=== PATIENT | female | born 1975 | race Caucasian/White ===

== ENCOUNTER 2019-06-01 11:26 | Emergency (ER) | payer OTHER ==
[~2019-06-01] VITALS: Ht 165.1 cm; Wt 99.3 kg
[2019-06-01 11:35] VITALS: BP 129/80
--- NOTE | 2019-06-01 11:41 | NUR ---
PT TO ER BED 4 WITH STEADY GAIT
--- NOTE | 2019-06-01 11:51 | NUR ---
PATIENT PRESENTS TO ED WITH RECTAL PAIN X4 DAYS. PT STATES PAIN STARTED 3 YEARS AGO AFTER BEING CONSTIPATED, CONTINUED PAIN. DENIES N/V/D; SKIN IS PINK/WARM/DRY; AAOX4 WITH EVEN AND STEADY GAIT; LUNGS CLEAR BL; HR EVEN AND REGULAR; PT DENIES ANY FEVER, CP, SOB, OR COUGH AT THIS TIME; PATIENT STATES PAIN OF 6/10 AT THIS TIME; VSS; PATIENT POSITIONED FOR COMFORT; HOB ELEVATED; BEDRAILS UP X2; BED DOWN. ER MD MADE AWARE OF PT STATUS.
--- NOTE | 2019-06-01 12:10 | NUR ---
Female [employer] Operator, KINGS PULIDO, accompanied female patient for Rectal Exam WITH DR YU.
--- NOTE | 2019-06-01 12:27 | NUR ---
dr. damico dc pt and provide with dc instructions along with rx naprosyn / keflex
[2019-06-01 12:28] VITALS: BP 129/80
== END 2019-06-01 12:27 | disposition home or self-care (01) ==
LOC: MED 11:26
DX: K61.1 Rectal abscess (principal); K64.4 Residual hemorrhoidal skin tags
CPT/HCPCS: 99283

== ENCOUNTER 2019-12-16 09:38 | Emergency (ER) | payer MEDICAID, OTHER ==
[~2019-12-16] VITALS: Ht 165.1 cm; Wt 100.7 kg
[2019-12-16 09:45] VITALS: BP 150/97
--- NOTE | 2019-12-16 09:45 | NUR ---
44 YO F C/C OF LEFT LOWER QUADRANT ABDOMINAL PAIN THAT BEGAN THIS MORNING AROUND 7AM. 10/10 PAIN DESCRIBED THROBBING PRESSURE. WALKING, SITTING, LAYING AGGRAVATES PAIN. LAYING ON RIGHT SIDE RELIEVES PAIN. SIDE RAILS X1. ALLERGIES- PT STATES SHE HAS AN ALLERGY TO A PAIN MEDICATION BUT DOESNT REMEMBER WHICH ONE NO MED HX NO RX.
--- NOTE | 2019-12-16 09:45 | NUR ---
PT TAKEN TO ROOM 8 VIA WHEELCHAIR
--- NOTE | 2019-12-16 09:48 | NUR ---
PT AMBULATED TO RESTROOM
[2019-12-16] MEDS ORDERED: MORPHINE SULFATE 4 MG/ML SYR IVP ONE ×2 (10:25→12:10)
[2019-12-16] MEDS ORDERED: ONDANSETRON 4 MG/2 ML VIAL IVP ONE (10:25)
[2019-12-16 10:53] LABS: APPEARANCE,URINE CLEAR (CLEAR); BILIRUBIN,URINE NEGATIVE (NEGATIVE); BLOOD, URINE TRACE-I (NEGATIVE); COLOR,URINE YELLOW (YELLOW); LEUKOCYTE ESTERASE ,URINE NEGATIVE (NEGATIVE); NITRITE, URINE NEGATIVE (NEGATIVE); UGLUCOSE NEGATIVE (NEGATIVE)
[2019-12-16 10:54] LABS: BASOPHILS # (AUTO) 0.1 K/uL (0.00-0.22); EOSINOPHILS # (AUTO) 0.4 K/uL (0-0.4); EOSINOPHILS % (AUTO) 3.5 % (0.0-4.0); HEMATOCRIT 40.7 % (36-48); HEMOGLOBIN 13.6 g/dL (12.0-16.0); LYMPHOCYTES # (AUTO) 2.6 K/uL (2.5-16.5); LYMPHOCYTES % (AUTO) 24.3 % (20.5-51.1); MEAN CORPUSCULAR HEMOGLOBIN 28 pg (27-31); MEAN CORPUSCULAR HGB CONC 33 g/dL (33-37); MEAN CORPUSCULAR VOLUME 84.4 fL (80-94); MONOCYTES # (AUTO) 0.5 K/uL (0.8-1.0); MONOCYTES % (AUTO) 4.7 % (1.7-9.3); NEUTROPHILS % (AUTO) 66.5 % (42.2-75.2); PLATELET COUNT (AUTO) 348 K/uL (140-450); RED BLOOD CELL COUNT(AUTO) 4.81 MIL/uL (4.20-5.40); RED CELL DISTRIBUTION WIDTH 14.3 % (11.6-13.7); WHITE BLOOD COUNT (AUTO) 10.5 K/uL (4.8-10.8)
--- NOTE | 2019-12-16 11:05 | NUR ---
PT AMBULATED TO RESTROOM
[2019-12-16 11:07] LABS: RBC,URINE 0-5 /HPF (0-5); WBC,URINE 0-5 /HPF (0-5)
[2019-12-16 11:08] LABS: ALBUMIN 3.5 g/dL (3.4-5.0); ANION GAP 11.8 (8-16); CARBON DIOXIDE 28.3 mmol/L (21-32); CREATININE 0.8 mg/dL (0.6-1.3); POTASSIUM 4.1 mmol/L (3.5-5.1); TOTAL BILIRUBIN 0.5 mg/dL (0.0-1.0)
--- NOTE | 2019-12-16 11:23 | NUR ---
pt taken to CT via danuta
--- NOTE | 2019-12-16 11:34 | NUR ---
pt. returned to bed [address]
--- NOTE | 2019-12-16 11:50 | NUR ---
REASSESSED PATIENTS PAIN AFTER PAIN MEDS GIVEN, PT STATES STILL HAVING 10/10 LLQ ABDOMINAL PAIN.
--- NOTE | 2019-12-16 12:11 | NUR ---
PT AMBULATED TO RESTROOM
--- NOTE | 2019-12-16 12:24 | NUR ---
US AT BEDSIDE.
--- NOTE | 2019-12-16 12:37 | NUR ---
STATED, REMAINS 07/02 LLQ PAIN---UNABLE TO GET RELIEF MEDICATED WRITTEN WILL CONTINUE TO OBSERVE FOR PAIN CONTROL
[2019-12-16 13:30] VITALS: BP 134/76
--- NOTE | 2019-12-16 13:30 | NUR ---
Patient discharged with v/s stable. Written and verbal after care instructions given and explained. Patient alert, oriented and verbalized understanding of instructions. Ambulatory with steady gait. All questions addressed prior to discharge. ID band removed. Patient advised to follow up with PMD. Rx of harshil arthur given. Patient educated on indication of medication including possible reaction and side effects. Opportunity to ask questions provided and answered.
== END 2019-12-16 13:30 | disposition home or self-care (01) ==
LOC: MED 09:38
DX: R10.32 Left lower quadrant pain (principal); R11.2 Nausea with vomiting, unspecified; R50.9 Fever, unspecified; Z90.710 Acquired absence of both cervix and uterus
CPT/HCPCS: 36415; 74177; 76856; 80053; 81001; 83690; 85025; 93976; 96374; 96375; 96376; 99285; J2270; J2405; Q0092; Q9967